=== PATIENT | female | born 1950 | race Caucasian/White ===

== ENCOUNTER → 2017-04-27 | Outpatient (CLI) | payer OTHER | END | disposition home or self-care (01) | LOC: CFH 06:44 | PROVIDERS: ATTEND Nurse Practitioner Family | DX: C79.02 Secondary malignant neoplasm of left kidney and renal pelvis (principal) | CPT/HCPCS: 71020; 76770 ==

== ENCOUNTER → 2017-10-12 | Outpatient (CLI) | payer OTHER ==
[~2017-10-12] MED LIST: AMLO5TAB2 PO; GABA300C10 PO; INSU100C5 SQ-INSULIN; INSU100I13 SC; LEVO125T5 PO; METO50TA82 PO; SULF1TAB24 PO; TRAM50TA2 PO
== END ==
LOC: CFH 08:55
PROVIDERS: ATTEND Licensed Practical Nurse
DX: Z12.31 Encounter for screening mammogram for malignant neoplasm of breast (principal); Z13.820 Encounter for screening for osteoporosis; M81.0 Age-related osteoporosis without current pathological fracture; M85.88 Other specified disorders of bone density and structure, other site; N95.8 Other specified menopausal and perimenopausal disorders
CPT/HCPCS: 77080; 77067

== ENCOUNTER 2018-05-19 23:59 | Inpatient (IN) | payer OTHER ==
[~2018-05-19] VITALS: Ht 162.6 cm; Wt 117.1 kg
[2018-05-20] MEDS ORDERED: SODIUM CHLORIDE FLUSH 10ML SYR IVF ONE (00:30)
[2018-05-20] MEDS ORDERED: AMLO5TAB2 PO (00:39)
[2018-05-20] MEDS ORDERED: LEVO125T5 PO (00:39)
[2018-05-20] MEDS ORDERED: TORS20TA2 PO (00:39)
[2018-05-20] MEDS ORDERED: INSU100I13 SC (00:39)
[2018-05-20 00:40] LABS: BASOPHILS # (AUTO) 0.01 x10^3/uL (0-0.1); BASOPHILS % (AUTO) 0 % (0-1); EOSINOPHILS % (AUTO) 2 % (1-7); LYMPHOCYTES # (AUTO) 1.18 x10^3/uL (1-3.4); LYMPHOCYTES % (AUTO) 20 % (22-44); MD NO; MEAN CORPUSCULAR HEMOGLOBIN 30.2 pg (27.0-34.8); MEAN CORPUSCULAR HGB CONC 32.5 g/dL (32.4-35.8); MEAN CORPUSCULAR VOLUME 93.1 fL (80-100); MEAN PLATELET VOLUME 8.7 fL (7.4-10.4); MONOCYTES % (AUTO) 8 % (2-9); NEUTROPHILS # (AUTO) 4.16 x10^3/uL (1.8-6.8); NEUTROPHILS % (AUTO) 70 % (42-75); PLATELET COUNT 198 x10^3/uL (130-400); RED BLOOD COUNT 4.72 x10^6/uL (3.82-5.3); RED CELL DISTRIBUTION WIDTH 14.5 % (9.6-15.2)
[2018-05-20 00:52] LABS: ALANINE AMINOTRANSFERASE 18 U/L (12-78); ALBUMIN 2.5 g/dL (3.4-5.0); ANION GAP 3 mmol/L (5-15); CHLORIDE 108 mmol/L (98-107); CREATININE 2.09 mg/dL (0.55-1.02)
[2018-05-20 00:56] LABS: ALKALINE PHOSPHATASE 75 U/L (45-117); BILIRUBIN,TOTAL 0.3 mg/dL (0.2-1.0); TOTAL PROTEIN 6.3 g/dL (6.4-8.2); TROPONIN I < 0.015 ng/mL (0.000-0.045)
[2018-05-20] MEDS ORDERED: GUAIFENESIN/DM 200-20MG, 10ML UDC PO PRN (02:00)
[2018-05-20] MEDS ORDERED: ACETAMINOPHEN 650 MG/20.3 ML UDC PO PRN (02:00)
[2018-05-20] MEDS ORDERED: NITROGLYCERIN 0.4 MG BOTTLE (25 TABS) SL PRN (02:00)
[2018-05-20] MEDS ORDERED: DOCUSATE 100 MG CAPSULE PO PRN (02:00)
[2018-05-20] MEDS ORDERED: TEMAZEPAM 15 MG CAPSULE PO PRN (02:00)
[2018-05-20] MEDS ORDERED: BUMETANIDE 0.25 MG/ML, 4ML IV ONE (02:00)
[2018-05-20] MEDS ORDERED: ONDANSETRON ODT 4 MG PO PRN (02:00)
[2018-05-20] MEDS ORDERED: DEXTROSE 50%, 50ML SYRINGE IVPush PRN (02:00)
[2018-05-20] MEDS ORDERED: DEXTROSE 4 GM TAB.CHEW PO PRN (02:00)
[2018-05-20] MEDS ORDERED: GLUCAGON 1 MG IM PRN (02:00)
[2018-05-20] MEDS: HEPARIN 5,000 UNITS/ML, 1ML SQ SCH ×3 (03:25→21:18)
[2018-05-20 03:30] VITALS: BP 173/73
[2018-05-20] MEDS: hydrALAzine 20 MG/ML, 1ML IVPush PRN (03:32)
[2018-05-20] MEDS: INSULIN LISPRO 100 UNITS/ML, PEN SQ-INSULIN SCH ×5 (03:32→21:19)
[2018-05-20 04:51] VITALS: BP 187/86
[2018-05-20 05:45] VITALS: BP 169/72
[2018-05-20 06:34] LABS: TROPONIN I < 0.015 ng/mL (0.000-0.045)
[2018-05-20 06:41] LABS: HEMOGLOBIN A1C 7.7 % (4.2-6.3)
[2018-05-20 06:44] LABS: CHOL/HDL RATIO 4.6
[2018-05-20 06:46] VITALS: BP 135/76
[2018-05-20] MEDS ORDERED: TORSEMIDE 20 MG TABLET PO SCH (07:30)
[2018-05-20] MEDS: SODIUM CHLORIDE FLUSH 10ML SYR IVF SCH ×2 (07:56→21:19)
[2018-05-20] MEDS ORDERED: BUMETANIDE 1 MG TABLET PO SCH (09:00)
[2018-05-20] MEDS ORDERED: AMLODIPINE 5 MG TABLET PO SCH (09:00)
[2018-05-20] MEDS: BUMETANIDE 0.25 MG/ML, 4ML IV SCH (10:40)
[2018-05-20] MEDS: ASPIRIN 81 MG TABLET EC PO SCH (10:40)
[2018-05-20] MEDS: METOPROLOL TARTRATE 50 MG TABLET PO SCH (10:41)
[2018-05-20] MEDS: LEVOTHYROXINE 125 MCG TABLET PO SCH (10:41)
[2018-05-20] MEDS: GABAPENTIN 300 MG CAPSULE PO SCH ×2 (10:41→21:18)
[2018-05-20 13:17] VITALS: BP 143/79
[2018-05-20 13:27] LABS: TROPONIN I < 0.015 ng/mL (0.000-0.045)
[2018-05-20 20:06] VITALS: BP 165/75
[2018-05-20] MEDS ORDERED: INSULIN GLARGINE 100 UNITS/ML, PEN SQ-INSULIN SCH (21:00)
[2018-05-21 03:07] VITALS: BP 165/76
[2018-05-21 05:06] LABS: CALCIUM 8.4 mg/dL (8.5-10.1); CREATININE 2.07 mg/dL (0.55-1.02)
[2018-05-21 05:15] LABS: CHLORIDE 105 mmol/L (98-107)
[2018-05-21 05:16] LABS: ANION GAP 7 mmol/L (5-15)
[2018-05-21] MEDS: ASPIRIN 81 MG TABLET EC PO SCH (05:49)
[2018-05-21] MEDS: HEPARIN 5,000 UNITS/ML, 1ML SQ SCH ×3 (05:50→21:34)
[2018-05-21] MEDS: LEVOTHYROXINE 125 MCG TABLET PO SCH (05:50)
[2018-05-21] MEDS: INSULIN LISPRO 100 UNITS/ML, PEN SQ-INSULIN SCH ×4 (07:00→21:00)
[2018-05-21 07:25] VITALS: BP 158/73
[2018-05-21] MEDS: BUMETANIDE 0.25 MG/ML, 4ML IV SCH (08:13)
[2018-05-21] MEDS: SODIUM CHLORIDE FLUSH 10ML SYR IVF SCH ×2 (08:15→21:00)
[2018-05-21] MEDS: METOPROLOL TARTRATE 50 MG TABLET PO SCH (08:16)
[2018-05-21] MEDS: GABAPENTIN 300 MG CAPSULE PO SCH ×2 (08:16→20:01)
[2018-05-21] MEDS ORDERED: FUROSEMIDE 40 MG/4 ML IV SCH (10:00)
[2018-05-21] MEDS ORDERED: FUROSEMIDE 100 MG/10 ML IV ONE (10:00)
[2018-05-21] MEDS ORDERED: FUROSEMIDE 40 MG/4 ML ONE (10:41)
[2018-05-21 11:04] VITALS: BP 169/74
[2018-05-21 11:58] VITALS: BP 158/84
[2018-05-21 13:40] VITALS: BP 158/72
[2018-05-21 19:06] VITALS: BP 177/79
[2018-05-21] MEDS: FUROSEMIDE 40 MG/4 ML IV SCH (20:02)
[2018-05-21] MEDS: AMLODIPINE 5 MG TABLET PO SCH (20:08)
[2018-05-21] MEDS ORDERED: INSULIN GLARGINE 100 UNITS/ML, PEN SQ-INSULIN SCH (21:00)
[2018-05-22] VITALS (7 sets, daily range): BP systolic 100–188; BP diastolic 71–90
[2018-05-22] MEDS: HEPARIN 5,000 UNITS/ML, 1ML SQ SCH ×3 (05:29→22:48)
[2018-05-22] MEDS: ASPIRIN 81 MG TABLET EC PO SCH (05:29)
[2018-05-22] MEDS: LEVOTHYROXINE 125 MCG TABLET PO SCH (05:29)
[2018-05-22 05:46] LABS: ANION GAP 3 mmol/L (5-15); CALCIUM 8.6 mg/dL (8.5-10.1); CHLORIDE 106 mmol/L (98-107)
[2018-05-22 05:49] LABS: CREATININE 1.99 mg/dL (0.55-1.02)
[2018-05-22] MEDS: INSULIN LISPRO 100 UNITS/ML, PEN SQ-INSULIN SCH ×4 (07:00→21:10)
[2018-05-22] MEDS: FUROSEMIDE 40 MG/4 ML IV SCH (08:32)
[2018-05-22] MEDS: GABAPENTIN 300 MG CAPSULE PO SCH ×2 (08:32→20:53)
[2018-05-22] MEDS: SODIUM CHLORIDE FLUSH 10ML SYR IVF SCH ×2 (08:32→20:53)
[2018-05-22] MEDS: METOPROLOL TARTRATE 50 MG TABLET PO SCH (08:39)
[2018-05-22] MEDS ORDERED: FUROSEMIDE 40 MG/4 ML ONE (16:16)
[2018-05-22] MEDS: AMLODIPINE 5 MG TABLET PO SCH (20:53)
[2018-05-22] MEDS ORDERED: FUROSEMIDE 40 MG/4 ML IV SCH (21:00)
[2018-05-22] MEDS: INSULIN GLARGINE 100 UNITS/ML, PEN SQ-INSULIN SCH (21:11)
[2018-05-23] VITALS (7 sets, daily range): BP systolic 152–186; BP diastolic 70–92
[2018-05-23] MEDS: hydrALAzine 20 MG/ML, 1ML IVPush PRN (02:31)
[2018-05-23 05:51] LABS: ANION GAP 3 mmol/L (5-15); CHLORIDE 100 mmol/L (98-107)
[2018-05-23 05:52] LABS: CALCIUM 8.8 mg/dL (8.5-10.1); CREATININE 1.95 mg/dL (0.55-1.02)
[2018-05-23] MEDS: ASPIRIN 81 MG TABLET EC PO SCH (06:32)
[2018-05-23] MEDS: HEPARIN 5,000 UNITS/ML, 1ML SQ SCH ×3 (06:33→23:53)
[2018-05-23] MEDS: LEVOTHYROXINE 125 MCG TABLET PO SCH (06:33)
[2018-05-23] MEDS ORDERED: FUROSEMIDE 40 MG/4 ML IV SCH (08:30)
[2018-05-23] MEDS: GABAPENTIN 300 MG CAPSULE PO SCH ×2 (08:42→20:56)
[2018-05-23] MEDS: SODIUM CHLORIDE FLUSH 10ML SYR IVF SCH ×2 (08:42→20:55)
[2018-05-23] MEDS: METOPROLOL TARTRATE 50 MG TABLET PO SCH ×2 (08:42→20:56)
[2018-05-23] MEDS: INSULIN LISPRO 100 UNITS/ML, PEN SQ-INSULIN SCH ×4 (08:44→20:53)
[2018-05-23] MEDS ORDERED: TORSEMIDE 20 MG TABLET PO ONE ×2 (13:00→14:30)
[2018-05-23] MEDS: INSULIN GLARGINE 100 UNITS/ML, PEN SQ-INSULIN SCH (20:57)
[2018-05-23] MEDS ORDERED: AMLODIPINE 5 MG TABLET PO SCH (21:00)
[2018-05-24 00:58] VITALS: BP 163/69
[2018-05-24 05:54] LABS: ANION GAP 5 mmol/L (5-15); CALCIUM 8.7 mg/dL (8.5-10.1); CHLORIDE 102 mmol/L (98-107)
[2018-05-24] MEDS: ASPIRIN 81 MG TABLET EC PO SCH (05:54)
[2018-05-24] MEDS: LEVOTHYROXINE 125 MCG TABLET PO SCH (05:54)
[2018-05-24] MEDS: TORSEMIDE 20 MG TABLET PO SCH ×2 (05:54→09:00)
[2018-05-24 05:56] LABS: CREATININE 1.88 mg/dL (0.55-1.02)
[2018-05-24] MEDS: INSULIN LISPRO 100 UNITS/ML, PEN SQ-INSULIN SCH ×2 (07:00→11:00)
[2018-05-24] MEDS: HEPARIN 5,000 UNITS/ML, 1ML SQ SCH (07:30)
[2018-05-24 08:30] VITALS: BP 167/78
[2018-05-24] MEDS: SODIUM CHLORIDE FLUSH 10ML SYR IVF SCH (09:00)
[2018-05-24] MEDS: GABAPENTIN 300 MG CAPSULE PO SCH (10:49)
[2018-05-24] MEDS: METOPROLOL TARTRATE 50 MG TABLET PO SCH (10:49)
[2018-05-24 11:10] VITALS: BP 165/75
[2018-05-24] MEDS ORDERED: AMLO10TA2 PO (12:13)
[2018-05-24] MEDS ORDERED: METO50TA82 PO (12:13)
[2018-05-24] MEDS ORDERED: ASPI-621 PO (12:13)
[2018-05-24] MEDS ORDERED: INSU100I13 SC (12:13)
[2018-05-24] MEDS ORDERED: SIMV20TA PO (12:27)
[2018-05-24 14:25] VITALS: BP 143/63
[2018-05-24] MEDS ORDERED: INSULIN GLARGINE 100 UNITS/ML, PEN SQ-INSULIN SCH (21:00)
[2018-05-24 21:01] VITALS: BP 172/70
== END 2018-05-24 23:02 | disposition home health service (06) | DRG 291 ==
LOC: ED 05-20 00:44 → EDIP 05-20 01:34 → 5SO 05-20 02:31
PROVIDERS: ADMIT Internal Medicine; ATTEND Internal Medicine
DX: I13.0 Hypertensive heart and chronic kidney disease with heart failure and stage 1 through stage 4 chronic kidney disease, or unspecified chronic kidney disease (principal); J96.01 Acute respiratory failure with hypoxia; E43 Unspecified severe protein-calorie malnutrition; I50.21 Acute systolic (congestive) heart failure; N18.4 Chronic kidney disease, stage 4 (severe); E87.2 Acidosis; Z68.41 Body mass index [BMI] 40.0-44.9, adult; E11.22 Type 2 diabetes mellitus with diabetic chronic kidney disease; E11.42 Type 2 diabetes mellitus with diabetic polyneuropathy; E11.649 Type 2 diabetes mellitus with hypoglycemia without coma; E66.01 Morbid (severe) obesity due to excess calories; E78.5 Hyperlipidemia, unspecified; E03.9 Hypothyroidism, unspecified; Z66 Do not resuscitate; Z79.4 Long term (current) use of insulin; Z85.528 Personal history of other malignant neoplasm of kidney; Z88.0 Allergy status to penicillin; Z90.5 Acquired absence of kidney; Z98.84 Bariatric surgery status; G47.33 Obstructive sleep apnea (adult) (pediatric); G56.00 Carpal tunnel syndrome, unspecified upper limb; G89.29 Other chronic pain
CPT/HCPCS: 36415; 36600; 71045; 80048; 80053; 80061; 82803; 82962; 83036; 83735; 83880; 84100; 84443; 84484; 85025; 93005; 93306; 96372; 96374; J1644; J1940; J0360; J1815

== ENCOUNTER 2019-04-23 06:42 | Outpatient (CLI) | payer MEDICARE ==
[~2019-04-23 06:42] MED LIST changes: +AMLO-150 PO; +AMLO10TA8 PO; -AMLO5TAB2 PO; +ASPI81TA45 PO; +SIMV20TA PO; +TORS20TA2 PO
== END 2019-04-23 23:59 | disposition home or self-care (01) ==
LOC: CFH 06:42
PROVIDERS: ATTEND Nurse Practitioner
DX: C79.02 Secondary malignant neoplasm of left kidney and renal pelvis (principal); M25.562 Pain in left knee; M79.662 Pain in left lower leg
CPT/HCPCS: 76770

== ENCOUNTER → 2020-04-06 | Outpatient (CLI) | payer MEDICARE | END | disposition home or self-care (01) | LOC: CFH 09:48 | PROVIDERS: ATTEND Nurse Practitioner Family | DX: Z12.31 Encounter for screening mammogram for malignant neoplasm of breast (principal); M81.0 Age-related osteoporosis without current pathological fracture; N95.9 Unspecified menopausal and perimenopausal disorder | CPT/HCPCS: 77063; 77067; 77080 ==

== ENCOUNTER → 2020-04-13 | Outpatient (CLI) | payer MEDICARE | END | disposition home or self-care (01) | LOC: CFH 07:47 | PROVIDERS: ATTEND Genetic Counselor, MS | DX: N26.1 Atrophy of kidney (terminal) (principal); Z85.528 Personal history of other malignant neoplasm of kidney | CPT/HCPCS: 76770 ==

== ENCOUNTER → 2021-05-17 | Outpatient (CLI) | payer MEDICARE ==
[~2021-05-17] MED LIST changes: +AMLO-211 PO; -AMLO10TA8 PO; +SULF-23 PO; -SULF1TAB24 PO
== END | disposition home or self-care (01) ==
LOC: RAD 08:10
PROVIDERS: ATTEND Genetic Counselor, MS
DX: Z85.528 Personal history of other malignant neoplasm of kidney (principal)
CPT/HCPCS: 71046; 76770

== ENCOUNTER → 2021-05-18 | Outpatient (CLI) | payer MEDICARE | END | disposition home or self-care (01) | LOC: CFH 07:42 | PROVIDERS: ATTEND Genetic Counselor, MS | DX: Z12.31 Encounter for screening mammogram for malignant neoplasm of breast (principal) | CPT/HCPCS: 77063; 77067 ==